=== PATIENT | male | born 1945 | race African-American/Black ===

== ENCOUNTER → 2017-12-23 | Outpatient (CLI) | payer OTHER ==
[2013-07-03 12:06] VITALS: BP 126/74
--- NOTE | 2017-12-23 10:33 | MRI ---
HISTORY: Low back pain, intervertebral disc disorder Study: MRI lumbar spine without contrast Comparison: None Technique: Multiplanar multi-sequence MRI of the lumbar spine was obtained. Sagittal T1, sagittal T2 , and stir weighted images, axial T1, and axial T2 images were obtained. Findings: Imaging of the lumbar spine demonstrates normal vertebral alignment. There is chronic mild compressio n deformity involving the T12 superior endplate with an associated Schmorl's node. No acute or early subacute compression fractures present within the lumbar spine. Moderate loss of disc space height is present at L4-5 and L5-S1 levels. There are multilevel advanced degenerative endplate changes there are most significant at the L4-5 and L5-S1 levels as well. Mild reactive edema associated with degene rative endplate changes present at the L5-S1 level and within the T12 superior endplate. The conus te rminates at the L1 level. Evaluation of the pre and paravertebral soft tissues is unremarkable. There is a mild ectasia of the suprarenal abdominal aorta. T12 -- L1: At the T12-L1 level there is mild facet hypertrophy without significant canal stenosis or neuroforaminal compromise. L1 -- L2: At the L1-L2 level there is facet hypertrophy and ligamentum flavum thickening as well as m ild lateral recess disc ridging, all resulting in mild neuroforaminal compromise on the right but no significant canal stenosis. L2 -- L3: At the L2-L3 level there is a right lateral recess disc protrusion or disc osteophyte super imposed upon mild broad-based disc ridging as well as advanced facet hypertrophy and ligamentum flavu m thickening, resulting in moderate neuroforaminal compromise on the right and mild canal stenosis. L3 -- L4: At the L3-L4 level there is a mild broad-based disc bulge as well as advanced facet hypertr ophy, resulting in [id number] bilateral neuroforaminal compromise but no significant canal sten osis. L4 -- L5: At the L4-L5 level there is a broad-based disc bulge as well as facet hypertrophy, resultin g in moderate to severe neuroforaminal compromise on the left and moderate neuroforaminal compromise on the right but no significant canal stenosis. L5 -- S1: At the L5-S1 level there is a broad-based disc bulge as well as facet hypertrophy, resultin g in moderate neuroforaminal compromise on the left and minimal neuroforaminal compromise on the righ t but no significant canal stenosis. IMPRESSION: 1. Multilevel degenerative disc disease and facet arthropathy, resulting in multilevel varying degree s of neuroforaminal compromise as detailed above. 2. Chronic mild compression deformity involving the T12 superior endplate. Reported By:
== END ==
LOC: RAD 08:25
PROVIDERS: ATTEND Obstetrics & Gynecology Obstetrics
DX: G89.29 Other chronic pain (principal); M51.16 Intervertebral disc disorders with radiculopathy, lumbar region
CPT/HCPCS: 72148

== ENCOUNTER 2017-12-29 13:09 | Day surgery (SDC) | payer OTHER ==
[2017-12-29] MEDS ORDERED: XYLOCAINE 1 % (PLAIN) ONE (13:43)
[2017-12-29] MEDS ORDERED: KENALOG INJ 40 MG IM ONE (13:43)
[2017-12-29] MEDS ORDERED: MARCAINE 0.25% INJ ONE (13:43)
[2017-12-29] MEDS ORDERED: MARCAINE 0.5% ONE (13:43)
--- NOTE | 2017-12-29 13:53 | DR.H&P ---
H&P - History & Physical for Day of: H&P Date: 12/29/17 - Chief Complaint Chief Complaint: my back hurts down my left leg - Allergies Allergies/Adverse Reactions: Allergies Allergy/AdvReac Type Severity Reaction Status Date / Time MS No Known Drug Allergy Allergy Verified 04/28/13 08:50 [No Known Drug Allergy] - History of Present Illness History of Present Illness: pt reports 2 month h/o above cc. no injury. states L4-5 possible discectomy about 20 years ago. pain relieved with medication and supination. aggravated with long standing/walking. - Past Medical History Past Medical History: Dyslipidemia, Hypertension - Past Surgical History Surgical History: Ortho Surgery (L4-5 discectomy) - Family History Family Medical History: Hypertension - Social History Does patient currently use any type of tobacco product: No Have you used tobacco products in the last 12 months: No Type of Tobacco Use: None Does any household member use tobacco: No Alcohol Use: None Drug Use: None - Review of Systems Musculoskeletal: Back Pain (lumbosacral region on palpation) - Physical Exam Vital Signs: Temperature 98.1 F Pulse Rate 61 Respiratory Rate 20 Blood Pressure 156/74 O2 Sat by Pulse Oximetry 96 Musculoskeletal: Foot (c/o pain in left foot), Back:Thoracic (no pain on palpation), Back:Lumbar (pain on palpation lumbosacral region) Mood Description: Calm Affect: Normal - Assessment/Plan (1) Lumbar disc disease with radiculopathy Status: Acute Plan: L5-S1 ronen left
[2017-12-29 14:28] VITALS: BP 153/81
== END 2017-12-29 14:30 | disposition home or self-care (01) | DRG 552 ==
LOC: SURG1 13:09
PROVIDERS: ATTEND Obstetrics & Gynecology Obstetrics
PROC: 3E0R3BZ Introduction of Anesthetic Agent into Spinal Canal, Percutaneous Approach (ICD-10-PCS; 2017-12-29)
PROC: 3E0R33Z Introduction of Anti-inflammatory into Spinal Canal, Percutaneous Approach (ICD-10-PCS; principal; 2017-12-29 13:00)
DX: M51.36 Other intervertebral disc degeneration, lumbar region (principal)
CPT/HCPCS: 62323; 76000; A4222; S0020; J2001; J3301